=== PATIENT | female | born 1950 | race Caucasian/White ===

== ENCOUNTER 2017-03-05 15:14 | Observation (INO) | payer MEDICARE ==
[2017-03-05 15:51] LABS: #Basophils 0.1 thou/uL (0.0-0.2); #Eosinphils 0.4 thou/uL (0.0-0.7); #Lymphocytes 2.9 thou/uL (1.20-3.40); #Monocytes 0.7 thou/uL (0.11-0.59); #Neutrophils 3.5 thou/uL (1.40-6.50); %Basophils 1.1 % (0.0-1.0); %Eosinophils 5.7 % (0.0-10.0); %Lymphocytes 38.6 % (21.0-51.0); Hematocrit 44.3 % (36.0-47.0); Mean Platelet Volume 7.3 fL (7.4-10.4); Red Blood Cell (RBC) Count 4.91 mill/uL (4.20-5.40); White Blood Cell (WBC) Count 7.6 thou/uL (4.8-10.8)
--- NOTE | 2017-03-05 15:57 | RAD ---
FRONTAL VIEW CHEST: Date: 03/05/17 INDICATION: Chest pain. FINDINGS: No consolidation, effusion, or pneumothorax. Cardiac silhouette is accentuated by portal technique. Mild interstitial prominence of each lung is present. IMPRESSION: No acute abnormality identified. POS: [facility]
[2017-03-05 16:14] LABS: ALT (SGPT) 10 U/L (8-55); AST (SGOT) 17 U/L (5-34); Alkaline Phosphatase 79 U/L (40-150); Anion Gap 14 mmol/L (10-20); BUN (Urea Nitrogen) 12 mg/dL (9.8-20.1); Bilirubin, Total 0.3 mg/dL (0.2-1.2); CK (CPK) 74 U/L (29-168); Calc. Creatinine Clearance 0 mL/min (70-130); Calcium 9.7 mg/dL (7.8-10.44); Carbon Dioxide 26 mmol/L (23-31); Chloride 104 mmol/L (98-107); Estimated GFR-MDRD 79; Globulin 3.5 g/dL (2.4-3.5); Lipase 14 U/L (8-78); Protein, Total 7.6 g/dL (6.0-8.3)
[2017-03-05 16:18] LABS: Troponin I Less than 0.010 ng/mL (< 0.028)
--- NOTE | 2017-03-05 19:59 | RAD ---
BARIUM SWALLOW: 03/05/17 HISTORY: Chest pain. Request was for evaluation of an esophageal structure. The patient ingested barium without difficulty. The esophageal mucosa was normal. There is a small h iatal hernia with a Schatzki's B-ring. Liquid passed without difficulty. Patient was given a barium tablet which showed delayed passage through the region of the GE junction. IMPRESSION: Findings suggesting a mild stricture with delay in passage of a barium tablet through the GE junctio n region. There is a small hiatal hernia present. POS: [facility]
[2017-03-05 20:53] LABS: Troponin I Less than 0.010 ng/mL (< 0.028)
[2017-03-05] MEDS ORDERED: Ondansetron HCl/PF 4 MG/2 ML Vial IVP PRN (21:43)
[2017-03-05] MEDS ORDERED: Calcium Carbonate 500 MG ChewTAB PO PRN (21:43)
[2017-03-05] MEDS ORDERED: Bisacodyl 10 MG SUPP PR PRN (21:43)
[2017-03-05] MEDS ORDERED: hydrALAZINE 20 MG/ML VIAL SLOW IVP PRN (21:43)
[2017-03-05] MEDS ORDERED: Nitroglycerin 0.4 MG TAB (25 Tab Bottle) SL PRN (21:43)
[2017-03-05] MEDS ORDERED: Acetaminophen 325 MG TAB PO PRN (21:43)
[2017-03-05] MEDS: Sodium Chloride 0.9% 1,000 ML IV SCH (22:22)
[2017-03-05 23:13] LABS: Troponin I Less than 0.010 ng/mL (< 0.028)
[2017-03-06 00:29] VITALS: BMI 27.8
[2017-03-06 01:51] LABS: Troponin I Less than 0.010 ng/mL (< 0.028)
[2017-03-06 04:17] LABS: #Basophils 0.1 thou/uL (0.0-0.2); #Eosinphils 0.4 thou/uL (0.0-0.7); #Monocytes 0.6 thou/uL (0.11-0.59); #Neutrophils 3.2 thou/uL (1.40-6.50); %Basophils 0.7 % (0.0-1.0); %Eosinophils 5.3 % (0.0-10.0); %Lymphocytes 41.4 % (21.0-51.0); %Monocytes 7.9 % (0.0-10.0); Mean Platelet Volume 7.6 fL (7.4-10.4); Red Blood Cell (RBC) Count 4.55 mill/uL (4.20-5.40); White Blood Cell (WBC) Count 7.1 thou/uL (4.8-10.8)
[2017-03-06 04:30] LABS: Anion Gap 11 mmol/L (10-20); BUN (Urea Nitrogen) 10 mg/dL (9.8-20.1); Calc. Creatinine Clearance 98 mL/min (70-130); Calcium 8.8 mg/dL (7.8-10.44); Carbon Dioxide 25 mmol/L (23-31); Chloride 107 mmol/L (98-107); Estimated GFR-MDRD Greater than 90
--- NOTE | 2017-03-06 07:45 | HP ---
CHIEF COMPLAINT: Chest pain with burning sensation. HISTORY OF PRESENT ILLNESS: This is a 67-year-old pleasant lady who was apparently in usual state o f health, had chest pain yesterday after eating fried chicken at 9:00 p.m., which lasted for about 5 minutes and then resolved and she threw up the food. She did not eat anything and then rested the whole day and today again eat the same fried chicken at 2:00 p.m. and she had the similar pain. Krystian n was retrosternal, it was burning in nature, intensity was 8/10, not associated with shortness of b reath and relieved by vomiting. The patient came into the hospital for the evaluation of this. She had a barium swallow, which showed mild stricture. Also, patient gives history of strictures in past for which she probably thinks she had a scope in [place], but she does not know the ex act nature of when they did out there, but the symptoms were relieved. Right now, she has no fever, no chills, no nausea, no vomiting. She is resting comfortably on the bed. She is going to be admi tted for further evaluation and treatment of the chest pain. PAST MEDICAL HISTORY: Significant for osteoarthritis, esophageal stricture. Some treatment 6-7 yea rs ago, she does know the nature of it. Hypertension. PAST SURGICAL HISTORY: Bladder surgery, appendectomy and hernia surgery. SOCIAL HISTORY: Does not smoke, drink or do recreational drugs. FAMILY HISTORY: Negative for diabetes and hypertension. MEDICATIONS: Lisinopril. ALLERGIES: None. REVIEW OF SYSTEMS: Significant for no fever, no chills, no headache, no appetite, no hearing loss, no latencies, no cough. Positive for chest pain, nausea, vomiting, otherwise no dysuria, diarrhea, polyuria, no memory or mood changes. No neck pain. PHYSICAL EXAMINATION: VITAL SIGNS: Blood pressure is 135/64, pulse is 58, respirations 15, temperature afebrile. GENERAL: Patient is lying in bed, in no apparent distress. HEENT: Atraumatic, normocephalic. Pupils equally, round, and reactive to light. Extraocular movem ents intact. Mucous membranes moist. NECK: Supple. No JVD. CHEST: Breath sounds heard. No rales or rhonchi. HEART: S1, S2. No murmurs or gallops. ABDOMEN: Soft. EXTREMITIES: No cyanosis, clubbing or edema. Distal pulses present. NEUROLOGIC: Alert, awake, oriented. No cranial deficits. No sensorimotor deficits. LABORATORY DATA: Troponin is negative. EKG, normal sinus rhythm. Chest x-ray negative. WBC count is 7.6, hemoglobin is 14, potassium 3.5, and creatinine is 0.7. Lipase is 14. ASSESSMENT AND PLAN: 1. Chest pain with burning sensation. The patient had a barium swallow, which showed a mild strict ure. The fact that she fried chicken and relieved by vomiting, my first suspicion is because of the esophageal stricture. We will trend troponins anyway and we will investigate cardiac causes if needed. We will consult GI for now, IV Pepcid and follow GI plan. Sublingual nitroglycerin in c ase the patient needs it. 2. Hypertension, we will do p.r.n. medications for now. Gentle hydration. 3. Sequential compression devices for deep venous thrombosis prophylaxis. 4. Osteoarthritis, stable. I will work with consultants in further caring for the patient.
[2017-03-06] MEDS ORDERED: FLU VACC TS2017-18 (>65YR) 0.5 ML SYRINGE IM ONE (09:00)
[2017-03-06] MEDS ORDERED: Famotidine/PF 20 mg/2ml Vial SLOW IVP SCH (09:00)
--- NOTE | 2017-03-06 10:34 | PDOC.PN ---
- Subjective Encounter Start Date: 03/06/17 Encounter Start Time: 10:00 Subjective: FEELING FINE THIS AM, NO CHEST BURNING - Objective MAR Reviewed: Yes Vital Signs & Weight: Vital Signs (12 hours) Temp Pulse Resp BP BP Pulse Ox 03/06/17 08:00 98.7 F 57 L 16 03/06/17 07:34 98.7 F 57 L 16 125/61 97 03/06/17 04:39 97.7 F 62 12 120/53 L 97 03/05/17 23:29 98.2 F 60 16 127/65 96 Weight Weight 157 lb 4.8 oz I&O: 03/05/17 03/06/17 03/07/17 06:59 06:59 06:59 Intake Total 780 Balance 780 Result Diagrams: 03/06/17 01:18 03/06/17 01:18 Phys Exam - Physical Examination Constitutional: NAD HEENT: PERRLA, moist MMs, sclera anicteric Neck: supple, full ROM Respiratory: no wheezing, clear to auscultation bilateral Cardiovascular: RRR, no significant murmur Gastrointestinal: soft, non-tender, positive bowel sounds Musculoskeletal: no edema Neurological: non-focal, moves all 4 limbs Psychiatric: normal affect, A&O x 3 Skin: no rash Dx/Plan (1) Esophageal stricture Code(s): K22.2 - ESOPHAGEAL OBSTRUCTION Status: Chronic (2) GERD (gastroesophageal reflux disease) Code(s): K21.9 - GASTRO-ESOPHAGEAL REFLUX DISEASE WITHOUT ESOPHAGITIS Status: Chronic (3) Atypical chest pain Code(s): R07.89 - OTHER CHEST PAIN Status: Acute - Plan cont current plan of care GI CONSULT PENDING, ADD PPI. -: R/O CARDIAC CAUSE * .
[2017-03-06] MEDS ORDERED: Pantoprazole 40 MG VIAL IVP SCH ×2 (11:00→21:00)
[2017-03-06 11:41] VITALS: TEMP 98.4
[2017-03-06] MEDS ORDERED: Propofol 200 MG/20 ML VIAL ONE (14:34)
[2017-03-06 15:34] VITALS: BP 144/83
[2017-03-06] MEDS: Sodium Chloride 0.9% 1,000 ML IV SCH (15:55)
--- NOTE | 2017-03-06 21:27 | DIS ---
DATE OF ADMISSION: 03/05/2017 DATE OF DISCHARGE: 03/06/2017 PRIMARY DISCHARGE DIAGNOSIS: Esophageal stricture. HOSPITAL COURSE: The patient presented on 03/05/2017, complaining of retrosternal pain and burning, dysphagia with some nausea and vomiting. The patient was seen and assessed. The barium swallow wa s done, which showed an esophageal stricture. GI was consulted and saw the patient. The patient re ceived an EGD with dilatation per Dr. Jean. The patient was deemed stable for discharge on pro ton pump inhibitor. The rest of her hospital stay was uneventful and she was cleared for discharge. DISCHARGE DISPOSITION: To home. DISCHARGE ACTIVITY: As tolerated. DISCHARGE DIET: High fiber, low fat. DISCHARGE MEDICATIONS: Protonix 40 mg p.o. q. day. The patient is to resume her home medication of lisinopril 20 mg q. day and vitamin D supplement. FOLLOWUP: The patient is to follow up with her primary care physician within 1 week and to follow u p with Gastroenterology as directed. REFERRAL NURSE: Gastroenterology, Dr. Jean. PROCEDURES: Barium swallow as well as EGD with dilatation. PHYSICAL EXAMINATION: On discharge; GENERAL: She is in no acute distress, pleasant, cooperative. HEAD: Normocephalic, atraumatic. EYES: PERRL. Extraocular muscles intact. LUNGS: Clear to auscultation. CARDIAC: Regular rate and rhythm. No murmurs, regurg or gallops. ABDOMEN: Nontender, nondistended. EXTREMITIES: No clubbing, cyanosis or edema.
--- NOTE | 2017-03-06 22:02 | CON ---
DATE OF CONSULTATION: 03/06/2017 REFERRING PHYSICIAN: [facility] REASON FOR CONSULTATION: Chest pain, difficulty swallowing and also a barium swallow showing a dist al esophageal stricture. HISTORY OF PRESENT ILLNESS: Ms. Kimber Leal is a very pleasant 67-year-old female wit h a prior history of esophageal stricture. Apparently, she had a short stricture, probably about 10 -12 years ago when she was living in [place]. She had an EGD and dilation done. Apparently, at that time she had food impaction. Following dilatation, she has done very well over the last 10 + years. She had no dysphagia or odynophagia. The patient does get occasional heartburn and usuall y does not take medicines. She said the heartburn lasts for few minutes and then goes away. The pa tierishi was eating some fried chicken yesterday and then she felt the meat piece stuck to the distal e sophagus, starting burning over the substernal area and also painful swallowing. Afterwards, she go t better and then she tried to eat some more chicken and again same thing happened again. She came to the ER because of the chest pain, which appears more of esophageal reflux and possibly the food g etting stuck causing the pain. She is actually feeling better today. She had a barium swallow done . The barium swallow does show esophageal stricture. The patient has no . She is active and does not have any exertional chest pain. She has no other relevant symptoms. ALLERGIES: None. SOCIAL HISTORY: The patient does not smoke or drink alcohol. MEDICAL ILLNESSES: 1. Osteoarthritis. 2. Esophageal stricture, esophageal dilation 12 years ago. 3. Occasional heartburn, self-limiting. 4. History of hypertension. SURGERIES: 1. Bladder surgery. 2. Appendectomy. 3. Hernia surgery. FAMILY HISTORY: Unremarkable. REVIEW OF SYSTEMS: Ten-point systems reviewed. NUT ROASTER: No chronic headache, no syncope, no TIA, no s eizure disorder. Respiratory system: No history of chronic cough, hemoptysis, dyspnea. Cardiovasc ular: No chest pain except yesterday but appears more esophageal pathology. No palpitation, no ex ertional dyspnea, no orthopnea, no PND. Gastrointestinal: Her bowel movements are regular. No hem atochezia, no melena. No abdominal pain. Genitourinary: No dysuria, hematuria or frequency of uri nation. Musculoskeletal: Unremarkable. Endocrine: Unremarkable. Hematological: Unremarkable. N euro/Psychiatric: Unremarkable. PHYSICAL EXAMINATION: GENERAL: This is a very pleasant female, who appears comfortable. She is in no distress. VITAL SIGNS: Stable. She is afebrile. Pulse is 59, blood pressure is 138/73. HEENT: Conjunctivae clear. NECK: Supple. No adenitis or thyromegaly noted. CARDIOVASCULAR: First and second heart sounds normal. LUNGS: Clear to auscultation. ABDOMEN: Soft to palpate. No organomegaly. No tenderness. No masses. EXTREMITIES: Reveal no edema. LABORATORY DATA: Today WBC 7100, hemoglobin 13.5, hematocrit 41, MCV 90.2, platelet count is 279,00 0, polymorphs 44, lymphocytes 41. Serum chemistries: Sodium is 140, potassium slightly low at 3.3 today, chloride 107, bicarbonate 25, BUN is 10, creatinine 0.61, glucose is 91, calcium 8.8. Liver function tests are actually normal. CPK and troponin level was normal. The barium swallow done bryce wed esophageal stricture. CLINICAL IMPRESSION: 1. A 67-year-old female with dysphagia and also painful swallowing. Her chest pain is mo st likely from the esophageal obstruction and not actually cardiac in origin. The patient has histo ry of esophageal stricture, status post dilation more than 10-12 years ago. 2. Hypertension. 3. Osteoarthritis. RECOMMENDATIONS: We will plan for an EGD today and dilation as she is n.p.o. I believe at the time of discharge, she will be on some medicine like Prilosec 20 once a day for acid reflux.
--- NOTE | 2017-03-07 01:27 | OP ---
DATE OF SURGERY: 03/06/2017 OPERATIVE PROCEDURE: 1. Esophagogastroduodenoscopy with biopsy. 2. Esophageal dilation with a Baker 48 and 50-Icelandic in diameter. PREOPERATIVE DIAGNOSES: Acid reflux, dysphagia. POSTOPERATIVE DIAGNOSES: 1. Esophagitis over the distal esophagus. There is no ulceration seen. Most of the mucosa was medardo matous and erythematous, which is very focal. 2. Ring-like esophageal stricture. 3. Hiatus hernia. PROCEDURE IN DETAIL: The patient was placed on her left lateral position and was given sedation by Anesthesia Department. A Pentax video gastroscope under direct vision was passed down the oropharyn x, past the gastroesophageal junction, into the stomach. Over the distal esophagus, there is a patc hy area of mucosal edema and erythema. No any ulceration seen. The mucosa also has multiple whitis h patches most likely mucus. Biopsies were obtained from the area. The patient had a ring-like eso phageal stricture. This ring was not really that tight, and scope could be advanced into the stomac h without difficulty. The diameter scope was closed probably about 38-40. The patient has a modera te size hiatus hernia. Retroflexion failed to show any lesions in the fundus or cardia. The gastri c body, gastric antrum, incisura angularis, no pathology seen. The duodenal bulb and descending duo denum, no pathology seen. The stomach decompressed and the scope removed. A size 48-Icelandic Baker dilator was passed down with mild resistance. Subsequently, a 50-Icelandic was passed with more mild resistance. The patient rescoped again and no complications noted except for mild mucosal friabilit y of the GE junction. RECOMMENDATIONS: 1. Discontinue n.p.o. 2. Diet: As tolerated. 3. Protonix 40 mg once a day. The patient has no problem, discharged home.
[2017-03-07] MEDS ORDERED: Lisinopril 20 MG TAB PO SCH (09:00)
== END 2017-03-06 17:06 | disposition home or self-care (01) ==
LOC: ERS 15:14 → 2SW 19:30
PROVIDERS: ADMIT Internal Medicine; ATTEND Internal Medicine
PROC: 0DB58ZX Excision of Esophagus, Via Natural or Artificial Opening Endoscopic, Diagnostic (ICD-10-PCS; principal; 2017-03-05)
PROC: 0D758ZZ Dilation of Esophagus, Via Natural or Artificial Opening Endoscopic (ICD-10-PCS; 2017-03-05)
DX: K22.2 Esophageal obstruction (principal); K22.10 Ulcer of esophagus without bleeding; K44.9 Diaphragmatic hernia without obstruction or gangrene; M19.90 Unspecified osteoarthritis, unspecified site; I10 Essential (primary) hypertension; Z79.899 Other long term (current) drug therapy; Z90.49 Acquired absence of other specified parts of digestive tract; Z98.890 Other specified postprocedural states
CPT/HCPCS: 43239; 43450; 71010; 74220; 80048; 80053; 82550; 82553; 83690; 84484 ×3; 85025 ×2; 88305; 88312; 88313; 93005; 96361 ×2; 96374; 96375; 99285; G0008; G0378 ×2; Q2036; 36415; 90471; 90682; A4216; C9113; J2704; S0028

== ENCOUNTER 2017-03-30 07:43 | Day surgery (SDC) | payer MEDICARE ==
[2017-03-29 15:41] VITALS: BMI 24.5
--- NOTE | 2017-03-29 23:15 | HP ---
SHORT-STAY HISTORY AND PHYSICAL HISTORY OF PRESENT ILLNESS: This is a 67-year-old female, who comes for a colonoscopy for colon cancer screening. The patient has no specific GI symptoms. Her bowel movements are regular. She has never had a colonoscopy in the past. ALLERGIES: None. MEDICAL ILLNESSES: 1. Osteoarthritis. 2. Chronic reflux esophagitis. 3. Esophageal stricture. 4. Hypertension. PHYSICAL EXAMINATION: VITAL SIGNS: Pulse is 70 and blood pressure 130/70. HEENT: Conjunctivae clear. NECK: Supple. ABDOMEN: No organomegaly. No tenderness. No masses. ADMITTING DIAGNOSIS: A 67-year-old female, who comes for colonoscopy for colon cancer screening.
[2017-03-30] MEDS ORDERED: Glycopyrrolate 0.2 MG/ML 5 ML SYRINGE ONE (10:47)
[2017-03-30] MEDS ORDERED: Propofol 200 MG/20 ML VIAL ONE (10:47)
[2017-03-30] MEDS ORDERED: Lidocaine 1% PF 5 ML VIAL ONE (10:47)
--- NOTE | 2017-03-30 12:54 | OP ---
DATE OF PROCEDURE: 03/30/2017 SURGEON: Nanda Jean M.D. OPERATIVE PROCEDURE: Colonoscopy with biopsy. PREOPERATIVE DIAGNOSIS: The patient is a 67-year-old female undergoing colonoscopy for co jose j cancer screening. POSTOPERATIVE DIAGNOSES: 1. Sigmoid diverticulosis. 2. Sessile sigmoid polyp. 3. Otherwise, normal exam. PROCEDURE NOTE: The patient was placed on her left lateral position and was given sedation by the A nesthesia Department. A rectal exam was performed before the scope was advanced into the rectum. N o lesions were felt on rectal exam. A Pentax video colonoscope was introduced into the rectum and a dvanced all the way into the cecum. The prep was excellent. The mucosa appeared normal throughout the colon. The appendiceal orifice, ileocecal valve, and cecum, no pathology seen. The ascending c olon and hepatic flexure, no lesions seen. The transverse colon, splenic flexure, and descending co jose j, no lesions seen. The sigmoid colon showed a small polyp. The polyp was removed with biopsy fo rceps. The sigmoid colon also showed scattered sigmoid diverticulosis. Rectum showed no lesions. DISCHARGE PLANNING: This is a 67-year-old female who came in for colonoscopy for colon ca ncer screening. The colonoscopy showed a small sessile sigmoid polyp, sigmoid diverticular disease. DISCHARGE RECOMMENDATIONS: 1. The patient advised to call me if she develops abdominal pain, hematochezia or fever. 2. High-fiber diet. 3. To come back in the clinic in 2 weeks.
== END 2017-03-30 11:54 | disposition home or self-care (01) ==
LOC: SDC 07:43
PROVIDERS: ATTEND Internal Medicine Gastroenterology
PROC: 0DBN8ZX Excision of Sigmoid Colon, Via Natural or Artificial Opening Endoscopic, Diagnostic (ICD-10-PCS; principal; 2017-03-30)
DX: Z12.11 Encounter for screening for malignant neoplasm of colon (principal); K63.5 Polyp of colon; K57.30 Diverticulosis of large intestine without perforation or abscess without bleeding; M19.90 Unspecified osteoarthritis, unspecified site; K21.0 Gastro-esophageal reflux disease with esophagitis; I10 Essential (primary) hypertension
CPT/HCPCS: 88305; J2001; J2704

== ENCOUNTER 2018-04-01 11:24 | Emergency (ER) | payer MEDICARE ==
[2018-04-01 12:01] LABS: #Basophils 0.1 thou/uL (0.0-0.2); #Eosinphils 0.5 thou/uL (0.0-0.7); #Lymphocytes 2.4 thou/uL (1.20-3.40); #Monocytes 0.6 thou/uL (0.11-0.59); #Neutrophils 4.8 thou/uL (1.40-6.50); %Basophils 0.9 % (0.0-1.0); %Eosinophils 6.5 % (0.0-10.0); %Lymphocytes 28.5 % (21.0-51.0); %Monocytes 7.3 % (0.0-10.0); %Neutrophils 56.9 % (42.0-75.0); Hemoglobin 13.4 g/dL (12.0-16.0); Mean Corpuscular HGB CONC 32.9 g/dL (32.0-36.0); Mean Corpuscular Hemoglobin 29.3 pg (27.0-31.0); Mean Platelet Volume 7.2 fL (7.4-10.4); Platelet Count 300 thou/uL (130-400); Red Blood Cell (RBC) Count 4.57 mill/uL (4.20-5.40); White Blood Cell (WBC) Count 8.4 thou/uL (4.8-10.8)
--- NOTE | 2018-04-01 12:09 | RAD ---
PORTABLE CHEST 1 VIEW: Date: 04/01/18 Time: 1039 hours HISTORY: Chest pain and shortness of breath. FINDINGS: Comparison made with exam of 03/05/17. The heart size is borderline. The aorta is tortuous. The lungs are expanded without focal areas of co nsolidation, pneumothorax, josé luis pulmonary edema, or pleural effusions. IMPRESSION: No acute process. POS: [facility]
[2018-04-01 12:24] LABS: CKMB 1.3 ng/mL (0-6.6); Troponin I Less than 0.010 ng/mL (< 0.028)
[2018-04-01 12:30] LABS: ALT (SGPT) 13 U/L (8-55); AST (SGOT) 25 U/L (5-34); Albumin 4.2 g/dL (3.4-4.8); Alkaline Phosphatase 93 U/L (40-150); Anion Gap 13 mmol/L (10-20); BUN (Urea Nitrogen) 16 mg/dL (9.8-20.1); Bilirubin, Total 0.4 mg/dL (0.2-1.2); CK (CPK) 77 U/L (29-168); Calc. Creatinine Clearance 0 mL/min (70-130); Calcium 9.2 mg/dL (7.8-10.44); Carbon Dioxide 26 mmol/L (23-31); Chloride 104 mmol/L (98-107); Estimated GFR-MDRD 76; Glucose 155 mg/dL (80-115); Potassium 3.8 mmol/L (3.5-5.1); Protein, Total 8.2 g/dL (6.0-8.3); Sodium 139 mmol/L (136-145)
[2018-04-01] MEDS ORDERED: Ondansetron PF 4 MG/2 ML Vial ONE (14:51)
[2018-04-01] MEDS ORDERED: Pantoprazole 40 MG VIAL ONE (14:51)
[2018-04-01] MEDS ORDERED: Mag-Al 1200 mg/1200 mg/30 ML UDCUP ONE (14:51)
[2018-04-01] MEDS ORDERED: Lidocaine Viscous Sol 2% 15 ml UD Cup ONE (14:51)
[2018-04-01 15:29] LABS: Troponin I Less than 0.010 ng/mL (< 0.028)
== END 2018-04-01 15:40 | disposition home or self-care (01) ==
LOC: ERS 11:24
DX: R07.89 Other chest pain (principal)
CPT/HCPCS: 36415; 71045; 80053; 82550; 82553; 84484; 85025; 93005; 96374; 96375; C9113; J2405

== ENCOUNTER 2018-10-17 13:03 | Outpatient (CLI) | payer MEDICARE ==
--- NOTE | 2018-10-17 14:12 | MMO ---
Bilateral MAMMO Bilat Screen [facility]. CLINICAL HISTORY: Patient is 68 years old and is seen for screening. The patient has no family history of breast cancer. The patient has no personal history of cancer. VIEWS: The views performed were: bilateral craniocaudal with tomosynthesis and bilateral mediolateral oblique with tomosynthesis. MAMMOGRAM FINDINGS: The breasts are heterogeneously dense, which could obscure a lesion on mammography. There are no suspicious masses, suspicious calcifications, or new areas of architectural distortion. IMPRESSION: THERE IS NO MAMMOGRAPHIC EVIDENCE OF MALIGNANCY. A ROUTINE FOLLOW-UP MAMMOGRAM IN 1 YEAR IS RECOMMENDED. THE RESULTS OF THIS EXAM WERE SENT TO THE PATIENT. ACR BI-RADS Category 1 - Negative MAMMOGRAPHY NOTE: 1. A negative mammogram report should not delay a biopsy if a dominant of clinically suspicious mass is present. 2. Approximately 10% to 15% of breast cancers are not detected by mammography. 3. Adenosis and dense breasts may obscure an underlying neoplasm.
== END 2018-10-17 13:04 | disposition home or self-care (01) ==
LOC: BICMAMMO 13:03
PROVIDERS: ATTEND Family Medicine
DX: Z12.31 Encounter for screening mammogram for malignant neoplasm of breast (principal)
CPT/HCPCS: 77063; 77067

== ENCOUNTER 2020-04-17 15:03 | Outpatient (CLI) | payer MEDICARE ==
--- NOTE | 2020-04-17 16:15 | ULT ---
BILATERAL CAROTID DUPLEX ULTRASOUND: HISTORY: Carotid bruits TECHNIQUE: Grayscale, color-flow and spectral Doppler ultrasound imaging of the extracranial carotid artery syst ems was performed bilaterally. FINDINGS: There is plaque formation on both sides. The peak systolic velocity in the right ICA measures 71 cm/s with an end-diastolic velocity of 24 cm/ s and a systolic ratio of 0.54. The peak systolic velocity in the left ICA measures 63 cm/s with an end-diastolic velocity of 31 cm/s and a systolic ratio of 0.73. Flow in both vertebral arteries remains antegrade. IMPRESSION: No evidence of hemodynamically significant stenosis in either ICA.
== END 2020-04-17 15:04 | disposition home or self-care (01) ==
LOC: BICULT 15:03
PROVIDERS: ATTEND Family Medicine
DX: R09.89 Other specified symptoms and signs involving the circulatory and respiratory systems (principal)
CPT/HCPCS: 93880

== ENCOUNTER 2022-12-17 10:55 | Outpatient (CLI) | payer MEDICARE | END 2022-12-17 10:56 | disposition home or self-care (01) | LOC: BICCT 10:55 | PROVIDERS: ATTEND Psychiatry & Neurology Neurology | DX: G30.9 Alzheimer's disease, unspecified (principal); F02.80 Dementia in other diseases classified elsewhere, unspecified severity, without behavioral disturbance, psychotic disturbance, mood disturbance, and anxiety; Z77.22 Contact with and (suspected) exposure to environmental tobacco smoke (acute) (chronic) | CPT/HCPCS: 70450 ==

== ENCOUNTER 2023-11-04 06:05 | Emergency (ER) | payer MEDICARE ==
[2023-11-04 06:48] LABS: #Basophils Less than 0.03 10x3/uL (0.0-0.2); %Basophils 0.1 % (0.0-1.0); %Eosinophils 0.4 % (0.0-10.0); %Lymphocytes 16.5 % (21.0-51.0); %Monocytes 14.1 % (0.0-10.0); %Neutrophils 68.4 % (42.0-75.0); Hematocrit 41.3 % (36.0-47.0); Hemoglobin 13.7 g/dL (12.0-16.0); Mean Corpuscular HGB CONC 33.2 g/dL (32.0-36.0); Mean Corpuscular Hemoglobin 29.9 pg (27.0-31.0); Mean Corpuscular Volume 90.2 fL (78.0-98.0); Mean Platelet Volume 9.7 fL (7.4-10.4); Platelet Count 241 10x3/uL (130-400); RBC Distribution Width 13.7 % (11.5-14.5); Red Blood Cell (RBC) Count 4.58 mill/uL (4.20-5.40)
[2023-11-04] MEDS ORDERED: Morphine 4 MG/ML VIAL ONE (06:48)
[2023-11-04] MEDS ORDERED: Ondansetron PF 4 MG/2 ML Vial ONE (06:48)
[2023-11-04 07:16] LABS: ALT (SGPT) 9 U/L (8-55); AST (SGOT) 24 U/L (5-34); Albumin 3.8 g/dL (3.4-4.8); Alkaline Phosphatase 74 U/L (40-110); Anion Gap 12 mmol/L (10-20); BUN (Urea Nitrogen) 15 mg/dL (9.8-20.1); Bilirubin, Total 0.7 mg/dL (0.2-1.2); Calc. Creatinine Clearance 0 mL/min (70-130); Calcium 9.6 mg/dL (7.8-10.44); Carbon Dioxide 28 mmol/L (23-31); Chloride 97 mmol/L (98-107); Estimated GFR 62; Globulin 3.4 g/dL (2.4-3.5); Glucose 137 mg/dL (83-110); Lipase 13 U/L (8-78); Potassium 3.1 mmol/L (3.5-5.1); Protein, Total 7.2 g/dL (5.8-8.1); Sodium 134 mmol/L (136-145)
[2023-11-04] MEDS ORDERED: Iopamidol 370 76% 100 ML VIAL ONE (11:26)
== END 2023-11-04 09:11 | disposition home or self-care (01) ==
LOC: ERS 06:05
DX: R10.9 Unspecified abdominal pain (principal); K20.90 Esophagitis, unspecified without bleeding; E87.6 Hypokalemia; I10 Essential (primary) hypertension; G30.9 Alzheimer's disease, unspecified; F02.80 Dementia in other diseases classified elsewhere, unspecified severity, without behavioral disturbance, psychotic disturbance, mood disturbance, and anxiety; W18.30XA Fall on same level, unspecified, initial encounter; Y93.89 Activity, other specified; Y92.89 Other specified places as the place of occurrence of the external cause; Z79.899 Other long term (current) drug therapy
CPT/HCPCS: 71260; 74177; 80053; 83690; 85025; 93005; J2270; J2405; Q9967; 36415; 96374; 96375

== ENCOUNTER 2024-03-11 19:57 | Emergency (ER) | payer MEDICARE ==
[2024-03-11 20:29] LABS: #Basophils 0.03 10x3/uL (0.0-0.2); %Basophils 0.4 % (0.0-1.0); %Eosinophils 8.8 % (0.0-10.0); %Lymphocytes 25.9 % (21.0-51.0); %Monocytes 9.4 % (0.0-10.0); %Neutrophils 55.1 % (42.0-75.0); Hematocrit 39.7 % (36.0-47.0); Hemoglobin 12.3 g/dL (12.0-16.0); Mean Corpuscular Hemoglobin 28.6 pg (27.0-31.0); Mean Corpuscular Volume 92.3 fL (78.0-98.0); Mean Platelet Volume 9.8 fL (7.4-10.4); Platelet Count 285 10x3/uL (130-400); RBC Distribution Width 13.8 % (11.5-14.5)
[2024-03-11 20:43] LABS: PTT 26.7 sec (22.9-36.1); Prothrombin Time 12.7 sec (12.0-14.7)
[2024-03-11 20:45] LABS: ALT (SGPT) 13 U/L (8-55); AST (SGOT) 20 U/L (5-34); Albumin 3.7 g/dL (3.4-4.8); Alkaline Phosphatase 113 U/L (40-110); Anion Gap 15 mmol/L (10-20); BUN (Urea Nitrogen) 34 mg/dL (9.8-20.1); Bilirubin, Total 0.2 mg/dL (0.2-1.2); Calc. Creatinine Clearance 0 mL/min (70-130); Calcium 9.5 mg/dL (7.8-10.44); Carbon Dioxide 28 mmol/L (23-31); Chloride 104 mmol/L (98-107); Estimated GFR 67; Globulin 3.2 g/dL (2.4-3.5); Glucose 188 mg/dL (83-110); Potassium 3.7 mmol/L (3.5-5.1); Protein, Total 6.9 g/dL (5.8-8.1); Sodium 143 mmol/L (136-145)
== END 2024-03-11 22:01 | disposition home or self-care (01) ==
LOC: ERS 19:57
DX: S01.01XA Laceration without foreign body of scalp, initial encounter (principal); M81.0 Age-related osteoporosis without current pathological fracture; I10 Essential (primary) hypertension; G30.1 Alzheimer's disease with late onset; F02.C0 Dementia in other diseases classified elsewhere, severe, without behavioral disturbance, psychotic disturbance, mood disturbance, and anxiety; W01.198A Fall on same level from slipping, tripping and stumbling with subsequent striking against other object, initial encounter; Y93.01 Activity, walking, marching and hiking; Z55.0 Illiteracy and low-level literacy
CPT/HCPCS: 12002; 36415; 36416; 70450; 72125; 80053; 85025; 85610; 85730; 93005